=== PATIENT | male | born 1960 | race Caucasian/White ===

== ENCOUNTER 2018-03-29 01:22 | Outpatient (CLI) | payer BC, SELFPAY ==
--- NOTE | 2018-04-22 13:01 | ZIOP_ITS ---
DATE OF DICTATION: April 22, 2018 [facility] MONITOR REPORT MONITOR IN PLACE: 14 days, March 29 - April 12, 2018 Baseline rhythm sinus. Rare single PAC. Six bursts of SVT, longest 16.8 second duration, fastest 174 bpm. Rare single PVC. No VT. No bradycardia/block. No symptoms. Four triggered events all occurring during sinus rhythm +/- single PVC, 86-97 bpm. Average heart rate sinus 88 bpm, range 55-131 bpm.
== END 2018-03-29 01:42 ==
PROVIDERS: PCP Nurse Practitioner; Visit Provider Psychiatry & Neurology Neurology
DX: G45.9 Transient cerebral ischemic attack, unspecified (principal); I47.1 Supraventricular tachycardia
CPT/HCPCS: 0296T; 93225

== ENCOUNTER 2023-05-09 14:57 | Outpatient (CLI) | payer OTHER, SELFPAY ==
[2023-05-09 15:19] VITALS: BP 168/79; PULSE 56; RESP 20; TEMP 36.7; O2SAT 94
--- NOTE | 2023-05-09 15:56 | DI.RAD_ITS ---
Exam(s) XR PAIN CLINIC LUMBAR SP 2V EXAM: XR PAIN CLINIC LUMBAR SP 2V CLINICAL HISTORY: Dx: Lumbar Spondylosis TECHNIQUE: 2D and realtime digital imaging was performed. CONTRAST MATERIAL: Refer to procedure report. COMPARISON: No exams were available for comparison FINDINGS: Fluoroscopy was provided for Dr. Myers during the performance of a lumbar medial branch block. Althea yang refer to the procedure report for complete details. Ka,r=23.1 mGy IMPRESSION: RADIATION DOSE DELIVERED: 0.0 0.0 0
--- NOTE | 2023-05-09 15:58 | PDOC.PAIN_ITS ---
Date of service: 05/09/23 Time of Service: 15:59 Pain Managment Procedure Note Procedure Note Procedure Note: PROCEDURE NOTE Bilateral Lumbar Medial Branch Blocks Date of Service: May 09, 2023 Patient: Casimiro Patterson Provider: Cortez Myers DO, MPH Casimiro Patterson has been referred to the [facility] for lumbar medial branch blocks. Pre-operative diagnosis: Lumbar Spondylosis without Myelopathy Post-operative diagnosis: Same Pre-procedure pain: VAS= 5/10 COMMENTS: I previously evaluated him in the clinic. His symptoms are the same now as they were at that time. Tamica was interviewed and the medical records were reviewed. There were no medical, pharmacologic, radiographic or other structural contraindications to attempting fluoroscopically guided local anesthetic lumbar medial branch blocks. Risks and potential side effects were discussed. I also discussed the potential benefit(s) of the procedure with Casimiro, and voiced concerns were addressed. After Casimiro was completely informed about the procedure, the printed consent form was signed. A standard time-out procedure was performed. Casimiro was placed in the prone position on the fluoroscopy table. Automated blood pressure cuff and pulse oximeter were applied. The skin entry points for approaching the anatomic target points of the segmental medial branches of bilateral L3,L4,L5 were identified with fluoroscopy and marked. The skin at the target site area was thoroughly prepared with Chlorhexadine. The skin was then draped. Next, a 25 gauge 3.5 spinal needle was placed under fluoroscopic guidance down on to the target point (the articular pillar) for each respective segmental medial branch. Position was confirmed in A/P and lateral views. Aspiration revealed no blood or clear fluid. Next, 0.25ml of omnipaque 240 was injected at each level. No contrast following a vascular or neural pattern was visualized under continuous fluoroscopy. Next, 0.25 ml of preservative-free 0.5% bupivicaine was injected at each level. There was no unusual discomfort expressed by Casimiro. The needles were withdrawn without difficulty. (49 mls of Omnipaque was wasted) Casimiro was observed and was without hemodynamic, neurologic, or allergic reactions.? Fluoroscopic images were digitally archived. Provacative testing using the Modified Marques's facet loading test- Left side Right Side Directly before the block VAS (0-10) = 5/10 VAS (0-10) = 5/10 Five minutes after the block VAS (0-10) = 1/10 VAS (0-10) = 1/10 Percentage relief obtained with this diagnostic block 85% 85% Any improved physical functioning directly after the blocks? Able to move around with ease. Follow up plans and appointments were discussed with Casimiro. Casimiro was instructed to keep careful note of how the usual pain was modified by these injections. Specifically, to keep a pain diary for the next 4 hours using a numeric pain scale of 0-10 and report these results. Post procedure instruction was given as documented in the nursing documentation and having met discharge criteria, the patient was [facility] from the [facility]. Based on the medial branches blocked today, if they patient has adequate relief and we are able to proceed to radiofrequency ablation, the treatment should r esult in the denervation of the bilateral L4-L5 and L5-S1 facet joints. We would expect to denervate a total of 4 facets during the radiofrequency ablation. COMMENTS: No apparent complications. Post-procedure pain: VAS= 1/10 Casimiro will call back with 0-4 hour post-procedure pain scores. I personally performed the entire procedure. CORTEZ MYERS DO, MPH ABPM&R-subspecialty board certification in Pain Medicine [facility] [facility]
[2023-05-09 16:06] VITALS: BP 161/84; PULSE 52; RESP 21; O2SAT 98
[2023-05-09] MEDS: Bupivacaine 0.5% Pres-Free 10 ML VIAL IJ (16:08)
[2023-05-09] MEDS: Omnipaque 240 MG/ML 50 ML BTL IJ (16:08)
[2023-05-09] MEDS: Nerve Block Tray 1 EACH MC (16:08)
== END 2023-05-09 14:58 | disposition home or self-care (01) ==
LOC: PC 14:57
PROVIDERS: PCP Nurse Practitioner; Visit Provider Preventive Medicine Occupational Medicine
DX: M47.816 Spondylosis without myelopathy or radiculopathy, lumbar region (principal)
CPT/HCPCS: 00123; 64493; 64494; 72100; J0665; Q9967

== ENCOUNTER 2023-07-18 09:15 | Outpatient (CLI) | payer OTHER, SELFPAY ==
[2023-07-18 09:26] VITALS: BP 164/56; PULSE 56; RESP 20; TEMP 36.7; O2SAT 100
--- NOTE | 2023-07-18 09:59 | DI.RAD_ITS ---
Exam(s) XR PAIN CLINIC SACRIOILIAC 2V EXAM: XR PAIN CLINIC SACRIOILIAC 2V CLINICAL HISTORY: Dx: Sacroiliac Joint Dysfunction TECHNIQUE: 2D and realtime digital imaging was performed. CONTRAST MATERIAL: Refer to procedure report. COMPARISON: No exams were available for comparison FINDINGS: Fluoroscopy was provided for Dr. Myers during the performance of a sacroiliac joint injection. Althea yang refer to the procedure report for complete details. Ka,r=11.8 mGy IMPRESSION: RADIATION DOSE DELIVERED: 0.0 0.0 0
[2023-07-18 10:05] VITALS: BP 147/76; PULSE 60; RESP 20; O2SAT 99
[2023-07-18] MEDS: methylPREDNISolone ACETATE 80 MG/ML VIAL IJ (10:07)
[2023-07-18] MEDS: Nerve Block Tray 1 EACH MC (10:07)
[2023-07-18] MEDS: Omnipaque 240 MG/ML 50 ML BTL IJ (10:07)
--- NOTE | 2023-07-18 10:19 | PDOC.PAIN_ITS ---
Date of service: 07/18/23 Time of Service: 10:19 Pain Managment Procedure Note Procedure Note Procedure Note: PROCEDURE NOTE BILATERAL INTRA-ARTICULAR SACROILIAC JOINT INJECTION Date of Service: July 18, 2023 Patient: Casimiro Patterson Provider: Cortez Myers DO, MPH COMMENTS: I previously evaluated the patient in the office and their symptoms in relation to the sacroiliac joint pain have remained the same. Pre-operative diagnosis: Sacroiliac joint dysfunction Post-operative diagnosis: Same Pre-procedure pain: VAS= 8/10 Casimiro Patterson has been referred to [facility] for a Bilateral intra-articular Sacroiliac joint injection. Casimiro was interviewed and the medical record reviewed. There were no medical, pharmacologic, radiographic or other structural contraindications to attempting a fluoroscopically-guided, contrast-enhanced, intra-articular Sacroiliac joint injection. The risks, benefits, and potential side effects of this procedure were reviewed with the patient. Questions and concerns were addressed. After it was clear that Casimiro was fully informed about the procedure, the printed consent form was signed by the patient and myself. Casimiro was placed in the prone position on the fluoroscopy table and an automated blood pressure cuff, 3 lead EKG, and pulse oximeter were applied. The skin entry point for approaching the Left sacroiliac joint was identified under the most advantageous fluoroscopic view and marked. Following thorough Chlorhexadine preparation of the skin and draping with sterile surgical drapes, 2 mls of 1% lidocaine was infiltrated into the skin at the entry point and the surrounding subcutaneous tissues. Next, a 3.5 22G spinal needle was placed under fluoroscopic guidance into the Left sacroiliac joint. Intra-articular placement was confirmed by a clear arthrogram resulting from the injection of 0.25ml of Omnipaque-240. Next, 1/2 ml of Depo- Medrol 80 mg/ml was injected intra-articularly with an initial reproduction of a significant component of the usual pain. This was followed with 1 ml of 1% Lidocaine. The needle was then removed without difficulty. (49 ml of Omnipaque-240 was wasted). The exact procedure was completed on the opposite sacroiliac joint. Casimiro's vital signs were stable throughout the procedure and were as recorded in nursing records. Follow up plans and appointments were discussed with Casimiro. Post procedure instructions were given as documented in nursing records. Having met discharge criteria, Casimiro was discharged from the [facility]. COMMENTS: Post-procedure pain: VAS= 3/10. If the patient receives at least 50% improvement in pain and/or function for at least 3 months, this procedure can be repeated if needed. I personally performed this entire procedure. CORTEZ MYERS DO, MPH ABPMR-subspecialty board certification in Pain Medicine [facility] [facility]
== END 2023-07-18 09:16 | disposition home or self-care (01) ==
LOC: PC 09:15
PROVIDERS: PCP Nurse Practitioner; Visit Provider Preventive Medicine Occupational Medicine
DX: M46.1 Sacroiliitis, not elsewhere classified (principal)
CPT/HCPCS: 27096; 72200; J1010; Q9967